=== PATIENT | female | born 2000 | race Caucasian/White ===

== ENCOUNTER 2022-05-12 13:40 | Emergency (ER) | payer BC, OTHER ==
[2022-05-12] MEDS ORDERED: ACETAMINOPHEN 500 MG TABLET (FP) PO ONE (14:02)
[2022-05-12] MEDS ORDERED: ALBUTEROL SO4 2.5/IPRATROPIUM 0.5 INH SOL 3 ML VIAL.NEB. NEB ONE ×2 (14:03→14:08)
[2022-05-12 14:07] VITALS: BP 129/83; TEMP 99.6; BMI 25.4
[2022-05-12] MEDS ORDERED: ACETAMINOPHEN 325 MG TABLET (FP) ONE (14:07)
[2022-05-12 15:22] VITALS: PULSE 98; RESP 18
== END 2022-05-12 15:05 | disposition home or self-care (01) ==
LOC: FER 13:40
PROC: 3E0F7GC Introduction of Other Therapeutic Substance into Respiratory Tract, Via Natural or Artificial Opening (ICD-10-PCS; principal; 2022-05-12)
DX: B34.9 Viral infection, unspecified (principal)
CPT/HCPCS: 0241U-QW; 71046-TC-FY; 99284-25

== ENCOUNTER 2024-05-28 16:24 | Emergency (ER) | payer SELFPAY ==
[2024-05-28 16:38] VITALS: BP 116/67; PULSE 73; RESP 16; TEMP 98.7; BMI 23.4
[2024-05-28] MEDS ORDERED: DIPHTH,PERTUSS(ACELL),TET 0.5 ML DISP.SYRIN IM ONE (17:10)
[2024-05-28] MEDS: DIPHTH,PERTUSS(ACELL),TET 0.5 ML DISP.SYRIN IM ONE (17:14)
== END 2024-05-28 17:34 | disposition home or self-care (01) ==
LOC: FER 16:24
PROC: 0HQFXZZ Repair Right Hand Skin, External Approach (ICD-10-PCS; principal; 2024-05-28)
PROC: 3E0234Z Introduction of Serum, Toxoid and Vaccine into Muscle, Percutaneous Approach (ICD-10-PCS; 2024-05-28)
DX: S61.511A Laceration without foreign body of right wrist, initial encounter (principal); W26.8XXA Contact with other sharp object(s), not elsewhere classified, initial encounter; Z23 Encounter for immunization
CPT/HCPCS: 90715; 99282-25